=== PATIENT | male | born 1970 | race Caucasian/White ===

== ENCOUNTER 2018-11-02 11:15 | Inpatient (IN) | payer OTHER ==
[~2018-11-02] VITALS: Ht 182.9 cm; Wt 111.1 kg
[2018-11-02 11:17] VITALS: BP 173/103
[2018-11-02 11:41] LABS: ABSOLUTE NEUTROPHILS 2.7 thou/uL (1.4-8.2); BASOPHILS 0.7 % (0.0-2.0); EOSINOPHILS 3.1 % (0.0-3.0); HEMATOCRIT 43.8 % (42.0-52.0); HEMOGLOBIN 14.9 gm/dL (14.0-18.0); LYMPHOCYTES 33.6 % (24.0-44.0); MCH 28.4 pg (26.0-34.0); MCHC 34.1 g/dL (28.0-37.0); MCV 83.2 fL (80.0-100.0); MONOCYTES 7.5 % (1.0-8.0); PLATELET COUNT 279 thou/uL (150-400); POLYS 55.1 % (36.0-66.0); RBC 5.26 mil/uL (4.50-6.00); WBC 4.8 thou/uL (4.0-11.0)
[2018-11-02 11:49] LABS: ANION GAP 9 mmol/L (7-16); BUN 17 mg/dL (7-18); CALCIUM 9.5 mg/dL (8.5-10.1); CHLORIDE 104 mmol/L (98-107); CO2 27 mmol/L (21-32); CREATININE 0.8 mg/dL (0.7-1.3); GLUCOSE 102 mg/dL (74-106); POTASSIUM 3.7 mmol/L (3.5-5.1); SODIUM 140 mmol/L (136-145)
[2018-11-02 12:04] LABS: ALBUMIN 4.1 g/dL (3.4-5.0); LIPASE 97 U/L (73-393); SGOT 23 U/L (15-37); SGPT 47 U/L (30-65); TOTAL BILIRUBIN 1.2 mg/dL (<0.1-1.0); TOTAL PROTEIN 7.8 g/dL (6.4-8.2); TROPONIN-I <0.06 ng/mL (<0.06)
[2018-11-02 14:04] VITALS: BP 148/95
[2018-11-02 14:07] VITALS: BP 141/109
[2018-11-02 16:04] VITALS: BP 120/93
[2018-11-02 17:04] VITALS: BP 120/93
--- NOTE | 2018-11-02 17:06 | NUR ---
PATIENT ADMIT TO UNIT AT 1410. A/O X4 DENIES CHEST PAIN. CARDIOLOGY OK DC TO HOME THEN FOLLOW UP OUT PATIENT TEST.
--- NOTE | 2018-11-02 17:17 | EKG ---
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1970 Requested By: Natalie Devine Order Number: [id number] MD: Bart Moseley Measurements Intervals [place] Rate: 64 P: 24 AR: 145 QRS: -18 QRSD: 93 T: -25 QT: 407 QTc: 420 Interpretive Statements Sinus rhythm Nonspecific T abnormalities No previous ECG available for comparison Electronically Signed On 11-02-2018 17:17:25 CDT by Bart Moseley [email or web address] ��������������������������������������������� <ELECTRONICALLY SIGNED> ���������������������������������������� By: Bart Moseley MD, [facility] ��������������������������������������������� 11/02/18 1717 1120 1120 Bart Moseley MD, FACC /EPI
== END 2018-11-02 17:43 | disposition home or self-care (01) | DRG 313 ==
LOC: ER 11:15 → EROBS 13:30 → 3W 13:50
PROVIDERS: Nurse Practitioner Family; ADMIT Hospitalist
DX: R07.89 Other chest pain (principal); R42 Dizziness and giddiness; R03.0 Elevated blood-pressure reading, without diagnosis of hypertension; R55 Syncope and collapse; G62.9 Polyneuropathy, unspecified; E66.9 Obesity, unspecified; Z68.33 Body mass index [BMI] 33.0-33.9, adult; Z82.49 Family history of ischemic heart disease and other diseases of the circulatory system
CPT/HCPCS: 10080